=== PATIENT | male | born 1980 | race Two or more races ===

== ENCOUNTER 2021-02-23 09:42 | Emergency (ER) | payer BC, OTHER ==
[~2021-02-23] VITALS: Ht 170.2 cm; Wt 95.3 kg
[2021-02-23 09:44] VITALS: BP 125/92
[2021-02-23] MEDS ORDERED: KETOROLAC TROMETH 60MG/2ML VIAL IM ONE (11:00)
== END 2021-02-23 11:29 | disposition home or self-care (01) ==
LOC: ER 09:42
DX: M24.812 Other specific joint derangements of left shoulder, not elsewhere classified (principal); F17.210 Nicotine dependence, cigarettes, uncomplicated; F12.10 Cannabis abuse, uncomplicated; I10 Essential (primary) hypertension; W19.XXXA Unspecified fall, initial encounter; Y93.89 Activity, other specified; Y92.89 Other specified places as the place of occurrence of the external cause; Y99.8 Other external cause status
CPT/HCPCS: 73030; 96372; 99283; J1885

== ENCOUNTER 2021-08-13 14:18 | Emergency (ER) | payer BC ==
[~2021-08-13] VITALS: Ht 170.2 cm; Wt 97.5 kg
[2021-08-13 14:24] VITALS: BP 117/71
[2021-08-13 15:39] LABS: Basophils # (auto) 0.1 10 ^3/uL (0-0.2); Basophils % (auto) 1.1 % (0.0-2.0); Eosinophils # (auto) 0.5 10 ^3/uL (0-0.8); Eosinophils % (auto) 6.8 % (0.0-7.0); Hematocrit 42.8 % (41.0-53.0); Hemoglobin 15.2 g/dL (13.5-17.5); Lymphocytes # (auto) 1.9 10 ^3/uL (0.4-5.4); Lymphocytes % (auto) 23.9 % (10.0-50.0); Mean Corpuscular Hemoglobin 33.4 pg (28.0-32.0); Mean Corpuscular Hgb Conc. 35.5 g/dL (32.0-36.0); Mean Corpuscular Volume 94.1 fL (80.0-100.0); Monocytes # (auto) 0.6 10 ^3/uL (0-1.3); Monocytes % (auto) 7.2 % (0.0-12.0); Neutrophils # (auto) 4.8 10 ^3/uL (1.6-8.6); Nucleated Red Blood Cells % 0.1 %; Red Blood Cells 4.55 10^6/uL (4.5-5.90); Red Cell Distribution Width 13.4 % (11.8-14.3); White Blood Cell 7.8 10^3/uL (4.4-10.8)
[2021-08-13] MEDS ORDERED: HYDR2.5C39 RE (15:39)
[2021-08-13 15:55] LABS: Albumin 4.2 g/dL (3.4-5.0); Potassium 4.1 mmol/L (3.5-5.1)
[2021-08-13 15:59] LABS: BUN/Creatinine Ratio 16.3; Bilirubin, Total 0.4 mg/dL (0.2-1.0); Total Protein 6.8 g/dL (6.4-8.2)
== END 2021-08-13 17:50 | disposition home or self-care (01) ==
LOC: ER 14:18
DX: K62.89 Other specified diseases of anus and rectum (principal); K59.00 Constipation, unspecified; I10 Essential (primary) hypertension; F17.210 Nicotine dependence, cigarettes, uncomplicated; J44.9 Chronic obstructive pulmonary disease, unspecified
CPT/HCPCS: 36415; 74176; 80053; 85025

== ENCOUNTER 2025-04-25 08:26 | Emergency (ER) | payer BC ==
[~2025-04-25] VITALS: Ht 170.2 cm; Wt 84.6 kg
[~2025-04-25 08:26] MED LIST: HYDR2.5C39 RE
[2025-04-25] MEDS: HYDROcodone-ACET 10/325MG TAB PO ONE (09:11)
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
[2025-04-25 09:47] VITALS: BP 134/88; PULSE 92; RESP 18; TEMP 97.4; O2SAT 96
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
--- NOTE | 2025-04-25 09:50 | DVH ---
XY FACIAL BONES COMPLETE, INDICATION: None. TECHNICAL DATA: Frontal, vertex, Andreina's, Mehta and lateral views were obtained of the skull. COMPARISON: None FINDINGS: No fracture or focal bone abnormality is demonstrated. The paranasal sinuses appear well aerated with no filling defect. The mastoid air cells are clear. No radiopaque foreign body. IMPRESSION: 1. No
[2025-04-25] MEDS ORDERED: IBU600T PO (09:56)
== END 2025-04-25 10:09 | disposition home or self-care (01) ==
LOC: ER 08:26
DX: M79.18 Myalgia, other site (principal); F12.90 Cannabis use, unspecified, uncomplicated; I10 Essential (primary) hypertension; F32.A Depression, unspecified; F17.210 Nicotine dependence, cigarettes, uncomplicated; Z79.899 Other long term (current) drug therapy
CPT/HCPCS: 70140; 73030